=== PATIENT | female | born 1970 | race Caucasian/White ===

== ENCOUNTER 2019-07-04 13:42 | Emergency (ER) | payer MEDICARE, MEDICAID ==
[~2019-07-04] VITALS: Ht 170.2 cm; Wt 72.1 kg
[~2019-07-04 13:42] MED LIST: ESCI10TA PO; LORA-258 PO; PHEN100C4 PO; PHEN60TA11 PO; TOPI200T PO
[2019-07-04] MEDS ORDERED: IV NS 0.9% 1,000 ML BAG IV ONE (14:00)
--- NOTE | 2019-07-04 14:00 | NUR ---
IBRA61, HAD A SEIZURE EPISODE, UNKNOWN TIME, BUT PER MOM 45 MINS VERSED 5MG GIVEN BY EMS. PATIENT RESPONSIVE TO VERBAL STIMULI, MOM AT BEDSIDE, NO DISTRESS NOTED, SEIZURE PRECAUTION OBSERVED, ATTACHED TO THE MONITOR.
[2019-07-04 14:19] LABS: BASOPHILS % (AUTO) 0.5 % (0.0-2.0); EOSINOPHILS % (AUTO) 0.5 % (0.0-6.0); HEMATOCRIT 36 % (33-45); HEMOGLOBIN 12.1 g/dL (11.5-14.8); LYMPHOCYTES % (AUTO) 15.8 % (20.0-44.0); MEAN CORPUSCULAR HGB CONC 34 g/dl (31.0-36.0); MEAN CORPUSCULAR VOLUME 95 fL (82-100); MONOCYTES # (AUTO) 0.2 /CMM (0.1-1.30); MONOCYTES % (AUTO) 3.7 % (2.0-12.0); NEUTROPHILS # (AUTO) 4.9 /CMM (1.8-8.9); NEUTROPHILS % (AUTO) 79.5 % (43.0-81.0); PLATELET COUNT (AUTO) 205 /CMM (150-450); RED BLOOD CELL COUNT(AUTO) 3.75 MIL/uL (4.0-5.2); WHITE BLOOD COUNT (AUTO) 6.2 K/uL (4.3-11.0)
[2019-07-04 14:25] LABS: CALCIUM, SERUM 8.8 mg/dL (8.5-10.1); CREATININE 1.1 mg/dL (0.6-1.3); POTASSIUM 3.6 mmol/L (3.5-5.1)
--- NOTE | 2019-07-04 15:30 | NUR ---
IV removed. Catheter intact and site benign. Pressure and 4x4 applied to site. No bleeding noted.Patient discharged to home in stable condition. Written and verbal after care instructions given to mom and verbalizes understanding of instruction.
[2019-07-04 15:48] VITALS: BP 118/65
== END 2019-07-04 15:50 | disposition home or self-care (01) ==
LOC: ER 13:45
DX: G40.909 Epilepsy, unspecified, not intractable, without status epilepticus (principal); Z88.8 Allergy status to other drugs, medicaments and biological substances
CPT/HCPCS: 36415; 80048; 80177; 80184; 85025; 99283; J7030

== ENCOUNTER 2020-02-05 16:45 | Emergency (ER) | payer MEDICARE, OTHER ==
[~2020-02-05] VITALS: Ht 170.2 cm; Wt 72.6 kg
--- NOTE | 2020-02-05 17:00 | NUR ---
BIB RA 50 YEAR ROLD FEMALE S/P SZ FOR 10 MINS WITNESSED BY MOTHER AND EMS, REC'D 5MG VERSEDNOW DROWSY BUT EASILY AROUSABLE AND ORIENTED. BREATHING EVEN AND UNLABORED WITH NO DISTRESS NOTED. SEIZURE IMPLEMENTED. FAMILY AT BEDSIDE. WAITING TO BE SEEN BY
[2020-02-05 17:37] LABS: BASOPHILS % (AUTO) 0.5 % (0.0-2.0); EOSINOPHILS % (AUTO) 1.4 % (0.0-6.0); HEMATOCRIT 38 % (33-45); HEMOGLOBIN 12.5 g/dL (11.5-14.8); LYMPHOCYTES # (AUTO) 1.8 /CMM (0.8-4.8); MEAN CORPUSCULAR HGB CONC 33 g/dl (31.0-36.0); MEAN CORPUSCULAR VOLUME 98 fL (82-100); MONOCYTES # (AUTO) 0.4 /CMM (0.1-1.30); MONOCYTES % (AUTO) 5.9 % (2.0-12.0); NEUTROPHILS # (AUTO) 4.4 /CMM (1.8-8.9); NEUTROPHILS % (AUTO) 65.2 % (43.0-81.0); PLATELET COUNT (AUTO) 206 /CMM (150-450); RED BLOOD CELL COUNT(AUTO) 3.84 MIL/uL (4.0-5.2); WHITE BLOOD COUNT (AUTO) 6.8 K/uL (4.3-11.0)
--- NOTE | 2020-02-05 17:38 | NUR ---
[employer]SI[employer] MANAGER AT BEDSIDE
[2020-02-05] MEDS ORDERED: ONDANSETRON HCL/PF 4 MG/2 ML VIAL ONE (17:43)
[2020-02-05 17:44] LABS: CALCIUM, SERUM 8.6 mg/dL (8.5-10.1); CARBON DIOXIDE 24 mmol/L (21-32); CHLORIDE 103 mmol/L (98-107); GLUCOSE 102 mg/dL (74-106); POTASSIUM 3.8 mmol/L (3.5-5.1); SODIUM SERUM 138 mmol/L (136-145); UREA NITROGEN, BLOOD 18 mg/dL (7-18)
--- NOTE | 2020-02-05 17:45 | NUR ---
PT VOMITTED X1 MD MADE AWARE, NEW ORDER OBTAINED CARRIED OUT AND NOTED
[2020-02-05 17:50] LABS: ALANINE AMINOTRANSFERASE 17 U/L (12-78); ALBUMIN 3.7 g/dL (3.4-5.0); ALCOHOL, BLOOD < 3 mg/dL (0-0); ALKALINE PHOSPHATASE 62 U/L (46-116); ASPARTATE AMINOTRANSFERASE 12 U/L (15-37); BILIRUBIN,TOTAL 0.2 mg/dL (0.2-1.0); TOTAL PROTEIN, SERUM 6.6 g/dL (6.4-8.2)
[2020-02-05] MEDS ORDERED: ONDANSETRON HCL/PF - ER 4 MG/2 ML VIAL IV ONE (18:00)
[2020-02-05 18:04] LABS: PHENOBARBITAL 12 ug/ml (15-39)
--- NOTE | 2020-02-05 18:15 | NUR ---
PT REFUSED BEDPAN AND I&O AT THIS TIME
[2020-02-05] MEDS ORDERED: LORAZEPAM INJ 2 MG/ML VIAL ONE (18:47)
[2020-02-05] MEDS ORDERED: METOCLOPRAMIDE HCL 10 MG/2 ML VIAL ONE (18:51)
[2020-02-05] MEDS ORDERED: LEVETIRACETAM (500MG) 1,000 MG in IV NS 0.9% 100 ML IV SCH (19:00)
[2020-02-05] MEDS ORDERED: METOCLOPRAMIDE HCL 10 MG/2 ML VIAL IV ONE (19:00)
--- NOTE | 2020-02-05 19:00 | NUR ---
ADDENDUM: Intravenous End Time Documentation: Luz Elenara 1 gram IVPB: start time:1900 PM ; end time: 1999 PM : IV site: YAMIL PIV # 20 Port # 1
--- NOTE | 2020-02-05 19:13 | NUR ---
EPIC PAGED ITS PALLAVI
[2020-02-05 19:19] VITALS: BP 132/80
--- NOTE | 2020-02-05 19:36 | NUR ---
PT NOT ABLE TO GIVEN URINE SAMPLE. AWARE.
[2020-02-05] MEDS ORDERED: TOPIRAMATE 100 MG TABLET PO SCH (21:00)
--- NOTE | 2020-02-05 21:00 | NUR ---
Patient does not wish to proceed with medical care recommended by Dr. Frye. Patient given information related to possible complications, up to and including , which could occur as a result of leaving the hospital at this time. Patient verbalizes understanding of risks involved due to leaving against medical advice. Patient has signed AMA form. IV removed. Catheter intact and site benign. Pressure and 4x4 applied to site. No bleeding noted. PT ambulatory with steady gait. Follows commands. VSS. Pt left with mother.
[2020-02-05] MEDS ORDERED: LORAZEPAM 0.5 MG TABLET PO SCH (22:00)
[2020-02-05] MEDS ORDERED: PHENYTOIN EXTENDED RELEASE 100 MG CAPSULE PO SCH (22:00)
[2020-02-05] MEDS ORDERED: ESCITALOPRAM OXALATE (10 MG) 10 MG TABLET PO SCH (22:00)
[2020-02-05] MEDS ORDERED: PHENOBARBITAL 30 MG TABLET PO SCH (22:00)
[2020-02-06] MEDS ORDERED: PHENYTOIN EXTENDED RELEASE 100 MG CAPSULE PO SCH (09:00)
== END 2020-02-05 21:06 | disposition left against medical advice (07) ==
LOC: ER 16:51 → UNDOADMIN 20:48 → TELE 20:48
DX: G40.901 Epilepsy, unspecified, not intractable, with status epilepticus (principal); R94.31 Abnormal electrocardiogram [ECG] [EKG]; Z88.8 Allergy status to other drugs, medicaments and biological substances; Z98.890 Other specified postprocedural states
CPT/HCPCS: 36415; 71045; 80048; 80076; 80184; 80185; 80307; 82962; 84702; 85025; 87081; 93005; 96365; 96375; 99291; J1953; J2405; J2765; J7030; G0480; J2060

== ENCOUNTER 2020-05-22 18:09 | Emergency (ER) | payer MEDICARE, OTHER ==
[~2020-05-22] VITALS: Ht 160 cm; Wt 75.3 kg
[2020-05-22 18:52] LABS: BASOPHILS % (AUTO) 0.6 % (0.0-2.0); EOSINOPHILS % (AUTO) 1.8 % (0.0-6.0); HEMATOCRIT 35 % (33-45); HEMOGLOBIN 11.9 g/dL (11.5-14.8); LYMPHOCYTES # (AUTO) 2.1 /CMM (0.8-4.8); LYMPHOCYTES % (AUTO) 34.7 % (20.0-44.0); MEAN CORPUSCULAR HGB CONC 34 g/dl (31.0-36.0); MEAN CORPUSCULAR VOLUME 98 fL (82-100); MONOCYTES # (AUTO) 0.4 /CMM (0.1-1.30); NEUTROPHILS # (AUTO) 3.4 /CMM (1.8-8.9); NEUTROPHILS % (AUTO) 56.9 % (43.0-81.0); PLATELET COUNT (AUTO) 264 /CMM (150-450); WHITE BLOOD COUNT (AUTO) 5.9 K/uL (4.3-11.0)
[2020-05-22] MEDS: LEVETIRACETAM (500MG) 500 MG in IV NS 0.9% 100 ML IV ONE (18:55)
--- NOTE | 2020-05-22 18:56 | NUR ---
FEDERICO FROM HOME TO ER BED 12. PT IS AWAKE, ALERT BUT LETHARGIC. NOT IN RESP DISTRESS. AMBULATORY. BROUGHT IN FOR A WITNESSED SEIZURE. PT IS NOT POST ICTAL, ANSWERING QUESTION AND ABLE TO FOLLOW COMMAND. PT IS COMPLAINING OF HEADACHE. NO NOTED ORAL INJURY. NO HT. PLACED ON SEIZURE PRECAUTION. WAS AT THE [facility] FOR EVAL.
[2020-05-22] MEDS ORDERED: KEPPRA 500 MG in IV NS 100 ML IV ONE (19:00)
[2020-05-22 19:01] LABS: CALCIUM, SERUM 8.4 mg/dL (8.5-10.1); POTASSIUM 3.5 mmol/L (3.5-5.1)
[2020-05-22 19:07] LABS: ALBUMIN 3.6 g/dL (3.4-5.0); BILIRUBIN,TOTAL 0.1 mg/dL (0.2-1.0); TOTAL PROTEIN, SERUM 6.5 g/dL (6.4-8.2)
--- NOTE | 2020-05-22 19:16 | NUR ---
PT'S MOTHER UPDATED WITH DAUGHTER'S CONDITION.
--- NOTE | 2020-05-22 19:50 | NUR ---
Patient discharged to home in stable condition. Written and verbal after care instructions given. Patient verbalizes understanding of instruction.IV removed. Catheter intact and site benign. Pressure and 4x4 applied to site. No bleeding noted. Pt ambulatory with a steady gait
[2020-05-22 19:51] VITALS: BP 117/74
== END 2020-05-22 19:51 | disposition home or self-care (01) ==
LOC: ER 18:13
DX: R56.9 Unspecified convulsions (principal); Z88.8 Allergy status to other drugs, medicaments and biological substances; Z79.899 Other long term (current) drug therapy
CPT/HCPCS: 36415; 80048; 80076; 85025; 93005 ×2; 96365; 99284; J1953; J7030

== ENCOUNTER 2020-07-22 18:10 | Emergency (ER) | payer MEDICARE, OTHER ==
[~2020-07-22] VITALS: Ht 160 cm; Wt 75.7 kg
--- NOTE | 2020-07-22 18:16 | NUR ---
BIB RA 79,MULTIPLE SEIZURE EPISODE TODAY, VERSED 5 MG IVP GIVEN EN ROUTE BLOOD SUGAR 82, TO ER BED 9, HOOKED TO DOUBLER HELPER AND POX, CHANGED TO HOSP GOWN ,WARM BLANKET PROVIDED, PATIENT RESPONSIVE TO TACTILE STIMULI, NOTED W L AREA OF THE HEAD SURGICAL WOUND WITH 28 KELLEE. SEIZURE PRECAUTION APPLIED. AWAITING MD PARRY
--- NOTE | 2020-07-22 18:38 | NUR ---
DR WARREN AT BEDSIDE
--- NOTE | 2020-07-22 19:20 | NUR ---
SPRING FORMER HAND JUST FINISHED BLOOD DRAW AND WILL RUN IT TO LAB.
[2020-07-22 19:25] LABS: BASOPHILS # (AUTO) 0.1 /CMM (0.0-0.2); BASOPHILS % (AUTO) 0.7 % (0.0-2.0); EOSINOPHILS % (AUTO) 1.2 % (0.0-6.0); HEMATOCRIT 36 % (33-45); HEMOGLOBIN 11.7 g/dL (11.5-14.8); LYMPHOCYTES # (AUTO) 2.2 /CMM (0.8-4.8); LYMPHOCYTES % (AUTO) 25.7 % (20.0-44.0); MEAN CORPUSCULAR HGB CONC 33 g/dl (31.0-36.0); MEAN CORPUSCULAR VOLUME 99 fL (82-100); MONOCYTES # (AUTO) 0.5 /CMM (0.1-1.30); MONOCYTES % (AUTO) 5.6 % (2.0-12.0); NEUTROPHILS # (AUTO) 5.6 /CMM (1.8-8.9); NEUTROPHILS % (AUTO) 66.8 % (43.0-81.0); PLATELET COUNT (AUTO) 311 /CMM (150-450); RED BLOOD CELL COUNT(AUTO) 3.59 MIL/uL (4.0-5.2); WHITE BLOOD COUNT (AUTO) 8.4 K/uL (4.3-11.0)
--- NOTE | 2020-07-22 19:26 | NUR ---
called for Keppra medication.
[2020-07-22] MEDS ORDERED: LEVETIRACETAM (500MG) 1,000 MG in IV NS 0.9% 100 ML IV SCH (19:30)
[2020-07-22 19:37] LABS: CALCIUM, SERUM 8.8 mg/dL (8.5-10.1); CARBON DIOXIDE 26 mmol/L (21-32); CHLORIDE 103 mmol/L (98-107); CREATININE 1.1 mg/dL (0.6-1.3); GLUCOSE 104 mg/dL (74-106); POTASSIUM 3.9 mmol/L (3.5-5.1); SODIUM SERUM 141 mmol/L (136-145); UREA NITROGEN, BLOOD 19 mg/dL (7-18)
[2020-07-22 19:44] LABS: ALANINE AMINOTRANSFERASE 13 U/L (12-78); ALBUMIN 3.7 g/dL (3.4-5.0); ALCOHOL, BLOOD < 3 mg/dL (0-0); ALKALINE PHOSPHATASE 58 U/L (46-116); ASPARTATE AMINOTRANSFERASE 12 U/L (15-37); BILIRUBIN,DIRECT 0.1 mg/dL (0.0-0.2); BILIRUBIN,TOTAL 0.2 mg/dL (0.2-1.0); TOTAL PROTEIN, SERUM 7.6 g/dL (6.4-8.2)
[2020-07-22] MEDS ORDERED: ONDANSETRON HCL/PF 4 MG/2 ML VIAL ONE (19:45)
--- NOTE | 2020-07-22 19:49 | NUR ---
RADIOLOGY CALLED, PATIENT VOMITED DURING CT SCA.
--- NOTE | 2020-07-22 19:51 | NUR ---
ZOFRAN 4MG IVP ADIMINISTERED IN CT BY MYSELF.
--- NOTE | 2020-07-22 19:56 | NUR ---
RETURNED FROM CT
[2020-07-22 20:00] LABS: PHENOBARBITAL 12 ug/ml (15-39); PHENYTOIN (DILANTIN) 0.7 ug/ml (10.0-20.0)
[2020-07-22] MEDS ORDERED: ONDANSETRON HCL/PF - ER 4 MG/2 ML VIAL IV ONE (20:00)
[2020-07-22] MEDS ORDERED: LEVETIRACETAM (500MG) 1,000 MG in IV NS 0.9% 100 ML IV STA (20:57)
--- NOTE | 2020-07-22 21:01 | NUR ---
PATIENT'S MOTHER BARGED INTO THE ER WITHOUT PERMISSION. REFUSING TO EXIT.
[2020-07-22] MEDS ORDERED: LEVETIRACETAM (500MG) 500 MG/5 ML VIAL IV ONE (21:05)
--- NOTE | 2020-07-22 21:09 | NUR ---
ON PHONE WITH
--- NOTE | 2020-07-22 21:30 | NUR ---
[facility] CALLED
[2020-07-22] MEDS ORDERED: LORAZEPAM INJ 2 MG/ML VIAL ONE ×2 (23:02→23:31)
--- NOTE | 2020-07-22 23:18 | NUR ---
PT ACCEPTED TO [facility] BY DR BARNES. [facility] [id number].
--- NOTE | 2020-07-22 23:25 | NUR ---
[facility] CALLED FOR ALS TRANSPORT. ETA [id number]
--- NOTE | 2020-07-22 23:28 | NUR ---
REPORT GIVEN TO RODRICK VALENZUELA FOR CONTINUATION OF CARE.
[2020-07-22] MEDS ORDERED: LORAZEPAM INJ 2 MG/ML VIAL IV ONE (23:30)
[2020-07-22 23:46] VITALS: BP 131/73
[2020-07-23] MEDS ORDERED: LORAZEPAM INJ 2 MG/ML VIAL IV ONE
--- NOTE | 2020-07-23 00:18 | NUR ---
report given to transport team for hannah. and transferring responsibilities.
== END 2020-07-23 00:20 | disposition short-term general hospital (02) ==
LOC: ER 18:15
DX: G40.901 Epilepsy, unspecified, not intractable, with status epilepticus (principal); R94.31 Abnormal electrocardiogram [ECG] [EKG]; Z88.8 Allergy status to other drugs, medicaments and biological substances; Z79.899 Other long term (current) drug therapy
CPT/HCPCS: 36415; 70450; 71045; 80048; 80076; 80184; 80185; 80307; 84702; 85025; 93005; 96365; 96366; 96375; 96376; 99291; J1953 ×2; J2060 ×2; J2405 ×2; J7030 ×2; G0480